=== PATIENT | male | born 1990 | race Two or more races ===

== ENCOUNTER 2021-10-28 15:33 | Emergency (ER) | payer OTHER ==
[~2021-10-28] VITALS: Ht 170.2 cm; Wt 63.5 kg
== END 2021-10-28 18:46 | disposition home or self-care (01) ==
LOC: ER 15:33
DX: J06.9 Acute upper respiratory infection, unspecified (principal); Z20.822 Contact with and (suspected) exposure to COVID-19

== ENCOUNTER → 2021-10-28 | Emergency (ER) | payer OTHER ==
[~2021-10-28] MED LIST: OSEL75CA PO; SORBUTUSS LIQU473 ML PO
== END | disposition left against medical advice (07) ==
LOC: ER 13:59
DX: Z53.21 Procedure and treatment not carried out due to patient leaving prior to being seen by health care provider (principal)